=== PATIENT | female | born 1970 | race Caucasian/White ===

== ENCOUNTER → 2017-10-28 20:12 | Outpatient (REF) | payer BC, SELFPAY ==
[2017-10-28 21:17] LABS: TSH (W/Ref FT4) 1.39 uIU/mL (0.358-3.74)
== END ==
LOC: NCHCN 20:12
PROVIDERS: PCP Family Medicine; Visit Provider Family Medicine
DX: E03.9 Hypothyroidism, unspecified (principal)
CPT/HCPCS: 84443

== ENCOUNTER 2019-02-14 09:20 | Outpatient (REF) | payer BC, SELFPAY ==
[2019-02-14 17:02] LABS: Absolute Basophil Count 0.01 k/cumm (0.0-0.2); Absolute Eosinophil Count 0.09 k/cumm (0.0-0.7); Absolute Lymphocyte Count 1.27 k/cumm (1.2-3.4); Absolute Neutrophil Count 1.37 k/cumm (1.2-6.7); Basophils % 0.3; Eosinophils % 3.1; HCT 38.7 % (36.0-46.0); HGB 12.9 g/dL (12.0-15.5); Lymphocytes % 43.2; Mean Corp. HGB Concentration 33.3 g/dL (32.0-36.0); Mean Platelet Volume 8.6 fL (8.0-11.0); Monocytes % 6.8; Neutrophils % 46.6; Platelet Count 282 x1000/uL (130-400); RBC Distribution Width 13.4 % (11.7-14.6); White Blood Cell Count 2.94 k/cumm (4.4-10.8)
[2019-02-14 17:21] LABS: Anion Gap 8.5 mmol/L (3-11); BUN 13 mg/dL (7-18); CO2 29.5 mmol/L (21.0-32.0); CREATININE 0.67 mg/dL (0.55-1.02); Calcium 8.9 mg/dL (8.5-10.1); Calculated LDL 154 mg/dL; Chloride 103 mmol/L (98-107); Cholesterol 245 mg/dL (<200); Glucose 91 mg/dL (74-106); HDL Cholesterol 84 mg/dL (40-60); Magnesium 1.9 mg/dL (1.8-2.4); Potassium 4.5 mmol/L (3.5-5.1); Sodium 141 mmol/L (136-145); TSH 2.01 uIU/mL (0.36-3.74); Triglyceride 38 mg/dL (<150)
== END 2019-02-14 09:40 ==
LOC: NCHCN 09:20
PROVIDERS: PCP Family Medicine; Visit Provider Family Medicine
DX: Z00.00 Encounter for general adult medical examination without abnormal findings (principal); E03.9 Hypothyroidism, unspecified; E78.5 Hyperlipidemia, unspecified; F41.8 Other specified anxiety disorders; F10.10 Alcohol abuse, uncomplicated; J30.9 Allergic rhinitis, unspecified
CPT/HCPCS: 80048; 80061; 83735; 84443; 85025

== ENCOUNTER 2019-12-17 15:42 | Outpatient (REF) | payer BC, SELFPAY ==
[2019-12-20 02:18] LABS: Patient Race White; SARS-CoV-2 RNA Undetected (Undetected); SARS-CoV-2 Specimen Source Nasopharynx
== END 2019-12-17 16:02 ==
LOC: NCHCN 15:42
PROVIDERS: PCP Family Medicine; Visit Provider Family Medicine
DX: B34.9 Viral infection, unspecified (principal)
CPT/HCPCS: U0003

== ENCOUNTER 2020-02-26 20:52 | Outpatient (REF) | payer BC, SELFPAY ==
[2020-02-26 21:27] LABS: HGB 12.7 g/dL (11.2-15.7)
[2020-02-26 22:04] LABS: Ferritin 31 ng/mL (8-252); TSH 2.02 uIU/mL (0.36-3.74)
== END 2020-02-26 21:12 ==
LOC: NCHCN 20:52
PROVIDERS: PCP Family Medicine; Visit Provider Family Medicine
DX: D64.9 Anemia, unspecified (principal); E03.9 Hypothyroidism, unspecified
CPT/HCPCS: 82728; 84443; 85018

== ENCOUNTER 2020-09-26 09:21 | Outpatient (CLI) | payer BC, SELFPAY ==
--- NOTE | 2020-09-26 09:00 | DI.RAD_ITS ---
Exam(s) XR HIP LT AP LAT ONLY EXAM: XR HIP LT AP LAT ONLY CLINICAL HISTORY: pain. TECHNIQUE: 2D digital imaging was performed. COMPARISON: MR MRI L LOWER JOINT WO CONT from 06/12/2015 MR MRI L LOWER JOINT WO CONT from 06/12/2015 CR PELVIS AP from 07/07/2015 FINDINGS: BONES: No acute fracture is present. No bony destructive lesion is seen. JOINTS: No dislocation present. SOFT TISSUE: Tubal ligation clips. Small rounded calcification above the greater trochanter seen on the AP view.. IMPRESSION: Unremarkable radiographs of the left hip. DATA REPOSITORY: RADIATION DOSE DELIVERED:
== END 2020-09-26 09:22 | disposition home or self-care (01) ==
LOC: DIORS 09:21
PROVIDERS: PCP Family Medicine; Referring Provider Family Medicine; Visit Provider Physician Assistant Surgical
DX: M94.252 Chondromalacia, left hip (principal)
CPT/HCPCS: 73502

== ENCOUNTER 2021-02-23 17:47 | Outpatient (REF) | payer BC, SELFPAY ==
[2021-02-23 21:53] LABS: TSH 2.61 uIU/mL (0.36-3.74)
== END 2021-02-23 17:48 | disposition home or self-care (01) ==
LOC: NCHCN 17:47
PROVIDERS: PCP Family Medicine; Visit Provider Family Medicine
DX: E03.9 Hypothyroidism, unspecified (principal)
CPT/HCPCS: 84443

== ENCOUNTER 2021-07-09 11:58 | Outpatient (CLI) | payer BC, SELFPAY ==
--- NOTE | 2021-07-09 11:15 | DI.RAD_ITS ---
Exam(s) XR SHOULDER RT COMPLETE 2+V EXAM: XR SHOULDER RT COMPLETE 2+V CLINICAL HISTORY: right shoulder pain. TECHNIQUE: 2D digital imaging was performed. COMPARISON: No exams were available for comparison FINDINGS: 3 views No evidence of fracture or dislocation. No abnormal soft tissue calcifications. No degenerative changes in the glenohumeral and AC joints. No os acromiale. Bone density normal. N o osseous lesions. IMPRESSION: No significant radiograph findings in the right shoulder. DATA REPOSITORY: RADIATION DOSE DELIVERED:
== END 2021-07-09 11:59 | disposition home or self-care (01) ==
LOC: DIORS 11:59
PROVIDERS: PCP Family Medicine; Referring Provider Family Medicine; Visit Provider Student in an Organized Health Care Education/Training Program
DX: M25.511 Pain in right shoulder
CPT/HCPCS: 73030

== ENCOUNTER 2022-02-19 09:35 | Outpatient (REF) | payer BC, SELFPAY ==
--- NOTE | 2022-02-19 08:40 | PAPFT_PTH ---
PATIENT: Esther Posada LOC: [facility]#:[id number] AGE/SX: 51/F ROOM: RE02/19/[address]: Lakisha Montemayor : 1970 BED: DIS: 02/19/2022 SPEC #: [id number] RECD: 02/19/22 17:32 STATUS: OCTAVIO REMarquez #: [id number] LUZMARIA: 02/19/22 08:[address]: Lakisha Montemayor DEPT: [facility] Cytology RECD BY: Nancy Gaytan Tissues: 1 - CX/ENDOCX FOR PAP SMEARS Procedures: PAP THIN PREP/[facility] Screening HPV DNA PROBE Comments: [id number]
[2022-02-19 15:36] LABS: HCT 39.6 % (36.0-46.0); HGB 13.2 g/dL (11.2-15.7); MCH 31.1 pg (27.0-33.0); MCHC 33.3 % (32.0-36.0); MCV 93 fL (80-95); Platelet Count 230 10^3/uL (130-400); RBC 4.25 10^6/uL (3.93-5.22); RDW 13.3 % (11.7-14.6); RDW-SD 45.5 fL; WBC 3.32 10^3/uL (4.4-10.8)
[2022-02-19 16:34] LABS: Calculated LDL 151 mg/dL (<100); Cholesterol 261 mg/dL (<200); HDL Cholesterol 102 mg/dL (40-60); TSH 1.43 uIU/mL (0.36-3.74); Triglyceride 40 mg/dL (<150)
== END 2022-02-19 09:36 | disposition home or self-care (01) ==
LOC: NCHCN 09:35
PROVIDERS: PCP Family Medicine; Visit Provider Family Medicine
DX: N28.89 Other specified disorders of kidney and ureter (principal); E03.9 Hypothyroidism, unspecified; Z86.2 Personal history of diseases of the blood and blood-forming organs and certain disorders involving the immune mechanism; Z00.00 Encounter for general adult medical examination without abnormal findings; Z12.4 Encounter for screening for malignant neoplasm of cervix; Z11.51 Encounter for screening for human papillomavirus (HPV)
CPT/HCPCS: 80061; 85027; 88142; 84443; 87624

== ENCOUNTER 2023-01-19 10:41 | Outpatient (REF) | payer BC, SELFPAY ==
[2023-01-19 15:42] LABS: Abs Immature Grans 0.01 10^3/uL (0.0-0.06); Absolute Basophil Count 0.01 10^3/uL (0.0-0.2); Absolute Eosinophil Count 0.07 10^3/uL (0.0-0.7); Absolute Monocyte Count 0.25 10^3/uL (0.1-0.8); Absolute Neutrophil Count 1.84 10^3/uL (1.2-6.7); Basophils % 0.3; HCT 40.2 % (36.0-46.0); HGB 13.4 g/dL (11.2-15.7); Immature Grans % 0.3; Lymphocytes % 37.4; MCH 31.7 pg (27.0-33.0); MCHC 33.3 % (32.0-36.0); MCV 95 fL (80-95); Monocytes % 7.2; Neutrophils % 52.8; Platelet Count 235 10^3/uL (130-400); RBC 4.23 10^6/uL (3.93-5.22); RDW-SD 45.4 fL; WBC 3.48 10^3/uL (4.4-10.8)
[2023-01-19 16:28] LABS: ALT 27 U/L (14-59); AST 20 U/L (15-37); Albumin 4.2 g/dL (3.4-5.0); Alkaline Phosphatase 42 U/L (46-116); Anion Gap 7.1 mmol/L (3-11); BUN 20 mg/dL (7-18); Bilirubin, Total 0.4 mg/dL (0.2-1.0); CO2 28.9 mmol/L (21.0-32.0); Calcium 9.8 mg/dL (8.5-10.1); Chloride 100 mmol/L (98-107); Estimated GFR 67.36 (mL/min/1.73m2); Glucose 112 mg/dL (74-106); Potassium 4.3 mmol/L (3.5-5.1); Sodium 136 mmol/L (136-145); TSH (W/Ref FT4) 1.55 uIU/mL (0.36-3.74)
== END 2023-01-19 10:42 | disposition home or self-care (01) ==
LOC: NCHCN 10:41
PROVIDERS: PCP Family Medicine; Visit Provider Physician Assistant
DX: R53.83 Other fatigue (principal); E04.1 Nontoxic single thyroid nodule
CPT/HCPCS: 80053; 84443; 85025

== ENCOUNTER 2023-01-28 17:04 | Outpatient (REF) | payer BC, SELFPAY ==
[2023-01-28 21:15] LABS: ESR 7 mm/hr (0-30)
[2023-01-28 21:22] LABS: C-Reactive Protein < 0.05 mg/dL (0.0-0.3)
[2023-02-01 16:25] LABS: IgG Immunoblot Negative (Negative); IgM Immunoblot Negative (Negative)
== END 2023-01-28 17:05 | disposition home or self-care (01) ==
LOC: NCHCN 17:04
PROVIDERS: PCP Family Medicine; Visit Provider Family Medicine
DX: M79.18 Myalgia, other site (principal); R20.2 Paresthesia of skin; R53.83 Other fatigue
CPT/HCPCS: 85652; 86617; 86140

== ENCOUNTER 2023-10-18 18:06 | Outpatient (REF) | payer BC, SELFPAY ==
[2023-10-18 21:15] LABS: Abs Immature Grans 0.01 10^3/uL (0.0-0.06); Absolute Basophil Count 0.02 10^3/uL (0.0-0.2); Absolute Eosinophil Count 0.07 10^3/uL (0.0-0.7); Absolute Monocyte Count 0.32 10^3/uL (0.1-0.8); Absolute Neutrophil Count 2.94 10^3/uL (1.2-6.7); Basophils % 0.4 %; Eosinophils % 1.4 %; HCT 39.4 % (36.0-46.0); HGB 12.8 g/dL (11.2-15.7); Immature Grans % 0.2 %; Lymphocytes % 32.3 %; MCH 31.3 pg (27.0-33.0); MCHC 32.5 % (32.0-36.0); MCV 96 fL (80-95); MPV 8.9 fL (8.0-11.0); Monocytes % 6.5 %; Neutrophils % 59.2 %; Platelet Count 208 10^3/uL (130-400); RBC 4.09 10^6/uL (3.93-5.22); RDW 14.1 % (11.7-14.6); RDW-SD 50.2 fL; WBC 4.96 10^3/uL (4.4-10.8)
[2023-10-18 21:43] LABS: TSH (W/Ref FT4) 2.19 uIU/mL (0.36-3.74)
[2023-10-19 17:47] LABS: T3, Total 176 ng/dL (97-169)
== END 2023-10-18 18:07 | disposition home or self-care (01) ==
LOC: NCHCN 18:06
PROVIDERS: PCP Family Medicine; Visit Provider Family Medicine
DX: R53.83 Other fatigue (principal)
CPT/HCPCS: 84443; 84480; 85025